=== PATIENT | female | born 1930 | race Caucasian/White ===

== ENCOUNTER → 2016-07-03 | Outpatient (CLI) | payer MEDICARE, BC ==
--- NOTE | 2016-07-03 09:43 | US ---
EXAMINATION TYPE: US duplex aorta DATE OF EXAM: 07/03/2016 9:36 AM COMPARISON: CTA abdomen and pelvis December 22, 2015. CLINICAL HISTORY: I71.[address] showed AAA EXAM MEASUREMENTS: Abdominal Aorta: Proximal: 2.2 x 2.6 cm Mid: 1.9 x 1.9 cm Distal: 3.0 x 3.3 cm Bifurcation: rt 0.8 x 0.9 cm lt 0.9 x 0.9 cm TECHNOLOGIST IMPRESSION: distal AAA, Marked ectasia to abdominal aorta is redemonstrated. Proximal abdominal aorta measures 2.2 x 2.6 cm t ransversely. Mid abdominal aorta right before aneurysm measures 1.9 x 1.7 cm transversely. Aneurysmal change of distal abdominal aorta is seen measuring up to 3.0 x 3.3 cm transversely. Findings correla te with prior CT. No aneurysmal extension into right and left common iliac arteries is identified. IMPRESSION: Bilobed distal abdominal aortic aneurysm measuring up to 3.3 cm in size on ultrasound wit hout significant change from prior CT.
== END | disposition home or self-care (01) ==
LOC: RADUSWWP 09:00
PROVIDERS: ATTEND Family Medicine
DX: I71.4 Abdominal aortic aneurysm, without rupture (principal)
CPT/HCPCS: 93979